=== PATIENT | female | born 1950 | race Caucasian/White ===

== ENCOUNTER 2017-10-12 10:50 | Inpatient (IN) | payer OTHER ==
[2017-10-12] MEDS ORDERED: ceFAZolin 2 GM/DEXTROSE 100 ML IV ONE (11:12)
[2017-10-12] MEDS ORDERED: ACETAMINOPHEN 500 MG TAB PO ONE (11:12)
[2017-10-12] MEDS ORDERED: CEFAZOLIN 2 GM/DEXTROSE/100 ML BAG IV ONE (11:18)
[2017-10-12] MEDS ORDERED: ACETAMINOPHEN 500 MG TAB ONE (11:18)
[2017-10-12] MEDS ORDERED: LIDOCAINE 1% 2 ML INJ ID PRN (11:41)
[2017-10-12] MEDS ORDERED: LR 1,000 ML IV ONE (11:41)
[2017-10-12] MEDS ORDERED: CHLORHEXIDINE GLUC HIBICLENS 118 ML BTL TP ONE (11:57)
[2017-10-12] MEDS ORDERED: BACITRACIN 50,000 UNITS/10 ML SYR IRR ONE (11:58)
[2017-10-12] MEDS ORDERED: BUPIVACAINE 0.25% 30 ML SDV ONE (11:58)
[2017-10-12] MEDS ORDERED: EPINEPHrine 1 MG/ML INJ ONE (11:58)
[2017-10-12] MEDS ORDERED: THROMBIN (BOVINE) 20,000 UNIT VIAL TP ONE (11:59)
--- NOTE | 2017-10-12 12:44 | PDANEPAE ---
ANE History of Present Illness l4-s1 tlif ANE Past Medical History - Cardiovascular History Hx Hypertension: Yes Hx Arrhythmias: No Hx Chest Pain: No Hx Coronary Artery / Peripheral Vascular Disease: No Hx CHF / Valvular Disease: No Hx Palpitations: Yes Cardiovascular History Comment: OCCAS FLUTTERS - Pulmonary History Hx COPD: Yes Hx Asthma/Reactive Airway Disease: No Hx Recent Upper Respiratory Infection: No Hx Oxygen in Use at Home: No Hx Sleep Apnea: No Sleep Apnea Screening Result - Last Documented: Negative Pulmonary History Comment: MILD COPD - Neurologic History Hx Cerebrovascular Accident: No Hx Seizures: Yes Hx Dementia: No Neurologic History Comment: FEVER SEIZURE - Endocrine History Hx Diabetes: Yes Hypothyroid: No Hyperthyroid: No Endocrine History Comment: DM II. A1C 5.02 AUGUST 2017 - Renal History Hx Renal Disorders: No Renal History Comment: WEAK BLADDER W/URGENCY - Liver History Hx Hepatic Disorders: No - Neurological & Psychiatric Hx Hx Neurological and Psychiatric Disorders: No - Cancer History Hx Cancer: No - Congenital Disorder History Hx Congenital Disorders: No - GI History Hx Gastrointestinal Disorders: Yes Gastrointestinal History Comment: GERD. ESOPHAGEAL DILATIONS - Other Health History Other Health History: MILD PSORIASIS - Chronic Pain History Chronic Pain: Yes (LOW BACK PAIN DOWN LEGS) - Surgical History Prior Surgeries: LUMBAR SURGERIES X2 2017. R FOOT SCAR SURGERY. L CEA 2000. ORAL SURGERY. T&A. ESOPHAGEAL DILATIONS. EPIDURAL INJS ANE Review of Systems Review of systems is: negative Review of Systems: - Exercise capacity Exercise capacity: >=4 METS METS (RN): 4 METS ANE Patient History - Allergies Allergies/Adverse Reactions: duloxetine [From Cymbalta] Allergy (Verified 10/12/17 12:02) dizziness gabapentin [From Gabarone] Allergy (Verified 10/12/17 12:02) "bad mood/leg swelling" Penicillins Allergy (Verified 10/12/17 12:02) Rash - Home Medications Home Medications: Ascorbic Acid [Vitamin C 500 mg (*)] 500 mg PO DAILY 09/18/17 [Last Taken Unknown] Aspirin [Aspirin 81mg (*)] 81 mg PO DAILY18 09/18/17 [Last Taken Unknown] C/E/Zn/Cu/OM3/DHA/EPA/LUT/ZEAX [Preservision Areds 2 Softgel] 1 each PO BID [Last Taken Unknown] Herbals/Supplements -Info Only 1 ea PO DAILY 09/18/17 [Last Taken Unknown] Lidocaine [Lidoderm] 0.5 - 1 each TP DAILY 09/18/17 [Last Taken Unknown] Lisinopril [Zestril 5 mg (*)] 5 mg PO DAILY 09/18/17 [Last Taken Unknown] Methocarbamol [Robaxin 750 mg (*)] 750 mg PO Q4HRS 09/18/17 [Last Taken 10/12/17 ] Metoprolol Tartrate [Lopressor 25 mg (*)] 12.5 mg PO BID 09/18/17 [Last Taken ] Multivitamins [Multivitamin (*)] 1 each PO BID 09/18/17 [Last Taken Unknown] Omeprazole 20 mg PO DAILY 09/18/17 [Last Taken 10/12/17] Propylene Glycol [Systane Balance] 1 drop EACHEYE DAILY PRN 09/18/17 [Last Taken Unknown] Simvastatin [Zocor] 10 mg PO HS 09/18/17 [Last Taken Unknown] Vitamin B Complex [Vitamin B Complex (OTC)] 1 each PO DAILY 09/18/17 [Last Taken Unknown] fentaNYL [Duragesic 12 MCG Patch (*)] 12 mcg TD Q2D 09/18/17 [Last Taken Unknown ] metFORMIN HCL [Glucophage 500 mg (*)] 500 mg PO DAILY 09/18/17 [Last Taken Unknown] oxyCODONE/APAP 5/325 [Percocet 5/325 (*)] 1 tab PO Q4-6PRN PRN 09/18/17 [Last Taken Unknown] Triamcinolone 0.1% Cream 09/25/17 [Last Taken Unknown] Triamcinolone 0.1% [Triamcinolone 0.1% Cream (*)] 1 rose TP BID 10/12/17 [Last Taken Unknown] - NPO status NPO Status: no food or drink >8 hours NPO Since - Liquids (Date): 10/12/17 NPO Since - Liquids (Time): 00:00 NPO Since - Solids (Date): 10/12/17 NPO Since - Solids (Time): 00:00 - Anes Hx Anes Hx: no prior problems, awareness under anesthesia Hx Anesthesia Complications (with details): PROBABLE SEDATION - Smoking Hx Smoking Status: Former smoker - Alcohol Use Alcohol Use: Occasionally - Family Anes Hx Family Hx Anesthesia Complications: MOTHER EXTREME NAUSEA ANE Labs/Vital Signs - Vital Signs Vital Signs: reviewed preoperatively; see RN documention for details Blood Pressure: 160/80 Heart Rate: 81 Respiratory Rate: 18 O2 Sat (%): 95 Height: 166.37 cm Weight: 61.235 kg ANE Physical Exam - Airway Neck exam: FROM Mallampati Score: Class 2 Mouth exam: dentures - Pulmonary Pulmonary: no respiratory distress - Cardiovascular Cardiovascular: regular rate and rhythym - ASA Status ASA Status: II ANE Anesthesia Plan Anesthesia Plan: general endotracheal anesthesia
[2017-10-12] MEDS ORDERED: MIDAZOLAM 2 MG/2 ML VIAL ONE (12:47)
[2017-10-12] MEDS ORDERED: MIDAZOLAM 2 MG/2 ML VIAL IVP ONE (12:49)
--- NOTE | 2017-10-12 13:00 | PDHPUP ---
History & Physical Update H&P update statement: This history and physical update is based on an assessment of the patient which was completed after admission or registration (within 24 hours), but prior to the surgery/procedure. H&P update: H&P reviewed & patient examined, no change in patient's condition since H&P completed
[2017-10-12] MEDS ORDERED: fentaNYL 100 MCG/2 ML INJ ONE ×2 (13:03→17:28)
[2017-10-12] MEDS ORDERED: LIDOCAINE 2% 5 ML SDV ONE (13:03)
[2017-10-12] MEDS ORDERED: REMIFENTANIL HCL 2 MG VIAL ONE (13:03)
[2017-10-12] MEDS ORDERED: ROCURONIUM 50 MG/5 ML VIAL ONE (13:03)
[2017-10-12] MEDS ORDERED: PROPOFOL 200 MG/20 ML VIAL ONE (13:04)
[2017-10-12] MEDS ORDERED: PROPOFOL/EMULSION 500 MG/50 ML BOTTLE IV ONE ×2 (13:04→16:06)
[2017-10-12] MEDS ORDERED: ONDANSETRON DISINTEGRATING 4 MG TAB PO PRN (13:46)
[2017-10-12] MEDS ORDERED: diphenhydrAMINE 25 MG CAP PO PRN (13:46)
[2017-10-12] MEDS ORDERED: NALOXONE HCL 0.4 MG/ML INJ IVP PRN ×2 (13:46→17:29)
[2017-10-12] MEDS ORDERED: METHOCARBAMOL 750 MG TAB PO PRN (13:46)
[2017-10-12] MEDS ORDERED: MAGNESIUM HYDROXIDE 30 ML UDCUP PO PRN (13:46)
[2017-10-12] MEDS ORDERED: morphINE PCA 30 MG/30 ML PCA IV PRN (13:46)
[2017-10-12] MEDS ORDERED: BISACODYL 10 MG SUPP PR PRN (13:46)
[2017-10-12] MEDS ORDERED: LACTULOSE 20 GM/30 ML UDCUP PO PRN (13:46)
[2017-10-12] MEDS ORDERED: ONDANSETRON 4 MG/2 ML VIAL IVP PRN ×2 (13:46→17:29)
[2017-10-12] MEDS ORDERED: POLYETHYLENE GLYCOL 3350 17 GM PKT PO PRN (13:46)
[2017-10-12] MEDS ORDERED: Propylene Glycol [Systane Balance] 1 DROP EACHEYE PRN (13:50)
[2017-10-12] MEDS ORDERED: NS 1,000 ML IV SCH (14:00)
[2017-10-12] MEDS ORDERED: ONDANSETRON 4 MG/2 ML VIAL ONE (14:08)
[2017-10-12] MEDS ORDERED: DEXAMETHASONE 4 MG/ML VIAL ONE ×2 (14:08)
[2017-10-12] MEDS ORDERED: PHENYLEPHRINE 10 MG/ML SDV ONE (14:47)
--- NOTE | 2017-10-12 15:12 | PDMN ---
Medical Necessity Medical necessity: [facility] IP only surgery; cpt 00514 & 25982 L4/S1 TLIF
[2017-10-12] MEDS ORDERED: HYDROmorphONE/DILAUDID 2 MG/ML INJ ONE (16:41)
[2017-10-12] MEDS ORDERED: ceFAZolin 1 GM VIAL ONE ×2 (16:41→16:42)
--- NOTE | 2017-10-12 17:25 | POSTOPPROG ---
Post Op Note Date of Operation: 10/12/17 Surgeon: Gracie Crawford Cardiovascular Surgical Tech: Luisa Mason NP Anesthesiologist: Abhijeet Anesthesia: GET(General Endotracheal) Pre-op Diagnosis: Lumbar Stenosis Procedure: L4-5 clamp removal, L4-5, L5-S1 TLIF Inf/Abcess present in the surg proc area at time of surgery?: No Depth: Deep Incisional (Fascial) EBL: 100-500 Total fluids administered: see anesthesia Complications: none Drains: Julito Beckham Date of Surgery: 10/12/17 Post Op Day: 0 Assessment/Plan: Assessment: 67 yr old F s/p L4-5 clamp removal, L4-5, L5-S1 TLIF Plan: -PT/OT -Wear brace when out of bed -Pain management, TAKER DOWN ordered if needed -Post op xrays in am -Call neurosurgery with questions/concerns Subjective: Waking up in PACU Objective: Waking up in PACU No facial droop OLIVER x4 5/5 BLE Dressing CDI Appropriate Neuro Check Frequency Ordered: Yes
[2017-10-12] MEDS ORDERED: DIAZEPAM 5 MG/ML 1 ML SYR IVP PRN (17:29)
[2017-10-12] MEDS ORDERED: MEPERIDINE 25 MG/0.5 ML AMP IVP PRN (17:29)
[2017-10-12] MEDS ORDERED: ACETAMINOPHEN 500 MG TAB PO PRN (17:29)
[2017-10-12] MEDS ORDERED: oxyCODONE IR 5 MG TAB PO PRN (17:29)
[2017-10-12] MEDS ORDERED: PROMETHAZINE HCL 25 MG/ML INJ IVP PRN (17:29)
[2017-10-12] MEDS ORDERED: ALBUTEROL 3 ML DEYVIAL IH PRN (17:29)
[2017-10-12] MEDS ORDERED: fentaNYL 100 MCG/2 ML INJ IVP PRN (17:29)
--- NOTE | 2017-10-12 17:33 | POSTANESTH ---
Post Anesthetic Evaluation Cardiovascular Status: Normal, Stable Respiratory Status: Normal, Stable Level of Consciousness/Mental Status: Can Participate in Eval Pain Control: Adequate, Prn Tx Ordered Nausea/Vomiting Control: Adequate, Prn Tx Ordered Complications Possibly Related to Anesthesia: None Noted
[2017-10-12] MEDS ORDERED: DIAZEPAM 5 MG/ML 1 ML SYR ONE (17:44)
[2017-10-12] MEDS ORDERED: HYDROmorphONE/DILAUDID 1 MG/ML INJ ONE (18:08)
[2017-10-12] MEDS: HYDROmorphONE/DILAUDID 1 MG/ML INJ IVP PRN ×2 (18:10→18:22)
[2017-10-12] MEDS: oxyCODONE IR 5 MG TAB PO PRN ×2 (18:49→22:24)
[2017-10-12] MEDS: ceFAZolin 2 GM/DEXTROSE 100 ML IV SCH (21:01)
[2017-10-12] MEDS: ACETAMINOPHEN 500 MG TAB PO SCH (21:01)
[2017-10-12] MEDS: FAMOTIDINE 20 MG TAB PO SCH (21:02)
[2017-10-12] MEDS: METOPROLOL TARTRATE 25 MG TAB PO SCH (21:03)
[2017-10-12] MEDS: PRAVASTATIN SODIUM 20 MG TAB PO SCH (21:04)
[2017-10-12] MEDS: SENNOSIDES/DOCUSATE SODIUM TAB PO SCH (21:05)
[2017-10-12] MEDS: LIDOCAINE 4%/MENTHOL 1% PATCH TD SCH (22:22)
[2017-10-12] MEDS: METHOCARBAMOL 750 MG TAB PO PRN (22:24)
--- NOTE | 2017-10-12 22:45 | GOP ---
[f rep st] OPERATIVE REPORT DATE OF OPERATION: 10/12/2017 SURGEON: Delbert Crawford MD NEUROSURGEON: Delbert Crawford MD. MULTIPLE PRESSURE RIVETER OPERATOR: Luisa Mason, Nurse Practitioner. PREOPERATIVE DIAGNOSIS: Failed back syndrome, lumbar degenerative disk disease, chronic pain syndrom e, chronic lumbosacral radiculopathy, degenerative tilt (scoliosis) L4 on L5 and L5 on S1. POSTOPERATIVE DIAGNOSIS: Failed back syndrome, lumbar degenerative disk disease, chronic pain syndro me, chronic lumbosacral radiculopathy, degenerative tilt (scoliosis) L4 on L5 and L5 on S1. PROCEDURE PERFORMED: Removal of posterior instrumentation across a single interspace at L4-5 (83956); posterolateral and i ntervertebral arthrodesis with decompressions, L4-5, L5-S1 (37093 and 02484); placement of biomechani leslie intervertebral device L4-5 and L5-S1 (00680 x 2); posterior segmental instrumentation L4, L5, S1 (81219); spinal stereotactic; same incision bone graft harvest; microscope. FINDINGS: ESTIMATED BLOOD LOSS: 200 cc. INDICATIONS: The patient is a 67-year-old with a prior history of an L4-5 decompression and L5-S1 de compression on the right-hand side for right-sided lumbosacral radiculopathy. She also had an inters pinous process fusion devices, a clamp of unknown origin placed at [facility], and she did not ach ieve bony union with this fusion device. She had chronic pain syndrome, terrible radiating pain down the right leg and had recently nearly fallen and wrenched her back and this had exacerbated her pain . She had a degenerative tilt of L4 on L5 and right-sided foraminal stenosis at those levels, and th is convexity of her scoliosis was coincident with the side of her pain, and I felt that she had nerve compression both in the lateral recess at L4-5 but also within the foramen. There was also a large amount of scarring adjacent to the L5 pedicle following the L5 root into its neural foramen, and I th ought that surgery gave her at least some chance of relief. 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 I exp lained to her the nature of the procedure including the chance that it may fail to alleviate her pain , but it seemed reasonable to attempt this, as she was in excruciating pain and really did not know h ow to go on any longer with this terrible pain. She was even teary eyed on the morning of surgery be cause she was in such terrible pain. She knew spine surgery was not perfect, and there was a chance that she may simply have chronic pain syndrome and that this would fail. She knew there was risk of pseudoarthrosis, adjacent segment disease, nerve injury, spinal fluid leak, and she did want to proce ed despite these risks. She is on large doses of narcotics, and I told her that it would likely be q uite some time before we were able to wean her from all of these medications. She was a diabetic and this also increased risk of nonunion. DESCRIPTION OF PROCEDURE: Patient was taken to the operating room, placed in supine position. Gener al anesthesia was begun. She was flipped prone on the Julito table. Care was taken to pad all poin ts of contact. She had about a 4.5 cm incision above the L4-5 interspace. She was sterilely prepped and draped. We opened the prior incision, extended it caudally for a distance of about 3 cm for a t otal distance of about 7.5 cm. The subcutaneous tissue was dissected using Bovie cautery down to the fascia and a subperiosteal dissection was made down the L4-5 lamina. There was a clamp at the L4-5 space. It was secured and properly placed. I saw no evidence of complication from the clamp placeme nt. It was still firmly securing the bone. There was no evidence, however, of bony union. We did n ot have a square screwdriver for removal of the clamp, but it was very easily removed. We simply too k a carbide bit, and cut the crossbar in the midline portion of the clamp itself and it quickly relea sed and pulled off the spinous process. We were later able to harvest underlying remaining spinous p rocess for autologous grafting purposes. We extended our incision. We needed a good bony purchase p oint for our reference frame and we had to make the incision longer extending it rostrally just a bit for a total distance of about 9 cm. We attached the Stealth reference frame to the L3 spinous proce ss, performed an O-arm spin, and using frameless Stealth stereotaxy, we placed pedicle screws bilater ally at L4, L5, and S1. They were all in excellent position. They all stimulated at acceptable leve ls. The S1 screws were bicortical. We took a 70 mm rods, placed them down between these screws and distracted. We began initially by distracting just a little bit on the right-hand side, but it was h ighly mobile. The spine was extremely easy to manipulate without much pressure, and we totally reduc ed the degenerative scoliotic tilt on the right-hand side. We final tightened all the cap screws acc ording to company specification and then harvested the L4 and L5 spinous process, and the S1 spinous process for autologous grafting purposes. We then drilled off all the soft tissue from the bone and decorticated the left-sided facets at L4-5 and 5-1. These were intact and while there was a left-deb ed L4-5 laminotomy, there was still a lot of lamina left on the left-hand side. We decorticated all this for a posterolateral fusion surface on the right-hand side where she had the severe pain. We th en completely removed the facet joint complexes on the right at L4-5 and 51 and it was difficult julio use there was a lot of scar tissue in the lateral recess. There was evidence of compression both at L4-5 and L5-S1, and we removed this tissue on top of the L5 root as well as the tissue sitting on top of the S1 root. Got great decompressions. We identified the L5 root at the L4-5 level and followed it into its neural foramen. We had identified the exiting L4 nerve root at the L4-5 foramen and julio use of the scar tissue, while we had good visualization of the nerves, they were not highly mobile, a nd I therefore elected to use small crescent intervertebral devices at L4-5 and 5-1 as opposed to our elevate cages which we typically use. Again at L5-S1, where we swept the S1 nerve root medially, wo rked in the axilla of the L5 root and removed the disk and the cartilaginous endplates. We roughened the subchondral bone to create arthrodesis. We then did likewise at L4-5. We removed the disk and the cartilaginous endplates. We roughened the subchondral bone to create arthrodesis. We packed BMP and bone autograft into the disk space. We used 2 mg in the disk spaces, 1 in each, and placed bony autograft and followed this with a 7 mm crescent intervertebral device. It was nicely placed. We t hen placed bone posterolaterally bilaterally at L4-5 and 5-1 after decorticating all of the remaining bone to create arthrodesis. We used a total of 4 mg of BMP for the surgery. A subfascial drain was placed. We then closed the fascia with interrupted Vicryl sutures and PDS was placed in the skin. Steri-Strips were placed, and the dressing was secured. The patient was then flipped back on the [facility] bed where she was reversed from anesthesia, extubated, and transferred to recovery room in stab le condition. There were no complications. COMPLICATIONS: None. /[id number]/MODL
[2017-10-12] MEDS: TRIAMCINOLONE 0.1% 15 GM CRTUBE TP SCH (23:27)
[2017-10-13 20:55] LABS: PLATELET COUNT 214 10^3/uL (150-400)
[2017-10-13] MEDS: LIDOCAINE 4%/MENTHOL 1% PATCH TD SCH (21:16)
[2017-10-13] MEDS: ACETAMINOPHEN 500 MG TAB PO SCH (22:11)
--- NOTE | 2017-10-13 22:30 | ASMTCMCOM ---
CM Note CM Note Notes: Pt s/p L4-5, L5-S1 TLIF and L4-5 clamp removal. PT/OT evals pending. CM to follow for d/c planning. Date Signed: 10/13/2017 03:08 PM Electronically Signed By:ANGEL Disla
[2017-10-14] MEDS: oxyCODONE IR 5 MG TAB PO PRN ×3 (02:30→10:49)
[2017-10-14] MEDS: METHOCARBAMOL 750 MG TAB PO PRN ×3 (02:30→10:47)
[2017-10-14] MEDS: FAMOTIDINE 20 MG TAB PO SCH ×3 (05:14→08:27)
[2017-10-14] MEDS: METOPROLOL TARTRATE 25 MG TAB PO SCH ×3 (05:17→08:26)
[2017-10-14] MEDS: PRAVASTATIN SODIUM 20 MG TAB PO SCH (05:17)
[2017-10-14] MEDS: SENNOSIDES/DOCUSATE SODIUM TAB PO SCH ×3 (05:18→08:25)
[2017-10-14] MEDS: TRIAMCINOLONE 0.1% 15 GM CRTUBE TP SCH ×3 (05:18→11:00)
[2017-10-14] MEDS: ACETAMINOPHEN 500 MG TAB PO SCH ×2 (05:30→06:12)
[2017-10-14] MEDS: metFORMIN HCL 500 MG TAB PO SCH ×2 (05:31→08:25)
[2017-10-14] MEDS: LISINOPRIL 5 MG TAB PO SCH ×2 (05:31→08:27)
[2017-10-14] MEDS: ceFAZolin 2 GM/DEXTROSE 100 ML IV SCH (05:32)
[2017-10-14] MEDS: PANTOPRAZOLE SODIUM 40 MG TAB PO SCH ×2 (05:32→08:28)
[2017-10-14] MEDS: PATCH REMOVAL 1 EA PATCH TD SCH ×2 (05:32→10:59)
--- NOTE | 2017-10-14 07:31 | NEUSURGPN ---
Date of Surgery: 10/12/17 Post Op Day: 2 Assessment/Plan: Assessment: 67 yr old F s/p L4-5 clamp removal, L4-5, L5-S1 TLIF POD#2 Plan: -PT/OT -Wear brace when out of bed -Pain management, currently controlled with oral medications -Post op xrays stable hardware placement -OK to discharge home, patient will be staying local at a hotel for 2 weeks ( patient lives in [place]) -Call neurosurgery with questions/concerns Patient seen by Dr Crawford as well Subjective: Improved pre op leg pain, sitting in chair comfortably Objective: AxO x3 Sitting in chair 5/5 BLE Sensation intact to light touch BLE Dressing/incision CDI Neuro Check Frequency: per routine Urinary Catheter in Place: No - Physician Discussed Patient with : Ty Patient Seen by : Ty Neurosurgery Physical Exam - Vitals, I&O, Labs I and O 10/13/17 10/14/17 10/15/17 05:59 05:59 05:59 Intake Total 1600 500 Output Total 300 600 Balance 1300 -100 Weight 61.235 kg Intake: Oral (ml) 500 IV Intake (ml) 1600 Output: Urine (ml) 100 600 Catheter 100 Toilet 600 Estimated Blood Loss (ml) 200 Other: Number of Voids Toilet 3 Vital Signs Temp Pulse Resp BP Pulse Ox 36.8 C 84 16 99/45 L 95 10/14/17 04:00 10/14/17 04:00 10/14/17 04:00 10/14/17 05:17 10/14/17 04:00 Laboratory Results 10/13/17 04:42 10/13/17 04:42 ICD10 Worksheet Patient Problems: Problems Problem Status Onset Fusion of lumbar spine Acute - ICD10 Problem Qualifiers (1) Fusion of lumbar spine
[2017-10-14 08:10] VITALS: BP 105/63
[2017-10-14] MEDS ORDERED: fentaNYL 12 MCG PATCH TD SCH (09:00)
--- NOTE | 2017-10-14 10:51 | PDIAF ---
- Diagnosis Diagnosis: S/P L4-5, L5-S1 TLIF Code Status: Full Code - Medication Management Discharge Medications: Medications to Continue on Transfer Ascorbic Acid [Vitamin C 500 mg (*)] 500 mg PO DAILY 09/18/17 [Last Taken Unknown] C/E/Zn/Cu/OM3/DHA/EPA/LUT/ZEAX [Preservision Areds 2 Softgel] 1 each PO BID [Last Taken Unknown] Herbals/Supplements -Info Only 1 ea PO DAILY 09/18/17 [Last Taken Unknown] Lidocaine [Lidoderm] 0.5 - 1 each TP DAILY 09/18/17 [Last Taken Unknown] Lisinopril [Zestril 5 mg (*)] 5 mg PO DAILY 09/18/17 [Last Taken Unknown] Metoprolol Tartrate [Lopressor 25 mg (*)] 12.5 mg PO BID 09/18/17 [Last Taken ] Multivitamins [Multivitamin (*)] 1 each PO BID 09/18/17 [Last Taken Unknown] Omeprazole 20 mg PO DAILY 09/18/17 [Last Taken 10/12/17] Propylene Glycol [Systane Balance] 1 drop EACHEYE DAILY PRN 09/18/17 [Last Taken Unknown] Simvastatin [Zocor] 10 mg PO HS 09/18/17 [Last Taken Unknown] Vitamin B Complex [Vitamin B Complex (OTC)] 1 each PO DAILY 09/18/17 [Last Taken Unknown] fentaNYL [Duragesic 12 MCG Patch (*)] 12 mcg TD Q2D 09/18/17 [Last Taken Unknown ] metFORMIN HCL [Glucophage 500 mg (*)] 500 mg PO DAILY 09/18/17 [Last Taken Unknown] Triamcinolone 0.1% [Triamcinolone 0.1% Cream (*)] 1 rose TP BID #0 09/25/17 [ Last Taken Unknown] Triamcinolone 0.1% [Triamcinolone 0.1% Cream (*)] 1 rose TP BID 10/12/17 [Last Taken Unknown] Aspirin [Aspirin 81mg (*)] 81 mg PO DAILY18 30 Days #0 10/14/17 [Last Taken Unknown] Methocarbamol [Robaxin 750 mg (*)] 750 mg PO Q4 PRN #90 tab 10/14/17 [Last Taken Unknown] oxyCODONE IR [Oxycodone Ir (*)] 5 - 10 mg PO Q4HRS PRN #60 tab 10/14/17 [Last Taken Unknown] Discharge Medications: Refer to the Discharge Home Medication list for PRN reason. PICC Care - Routine: N/A - Orders Services needed: Physical Therapy, Occupational Therapy Diet Recommendation: no restrictions on diet Diet Texture: Regular Texture Diet Wound Care Instructions: Ok to remove dressing tomorrow 10/15/17. Leave steri strips in place Activity/Weight Bearing Restrictions: No bending or twisting. Do not lift greater than 10 pounds. Wear brace when out of bed. No brace needed for shower Additional Instructions: No bending or twisting Do not lift greater than 10 pounds Wear brace when out of bed Ok to remove dressing 10/15/17-leave steri strips in place Ok to shower tomorrow (10/15/17) Do not submerge incision in bath tub or pool for 2-3 weeks - Follow Up Care Current Providers and Referrals: Doctor Robyn,On Staff, [Primary Care Provider] - Gracie Crawford MD [Medical Doctor] - follow up in 2 weeks
--- NOTE | 2017-10-14 11:47 | ASMTLACE ---
LACE Length of stay for Answers: 2 days current admission Acuity / Level of Answers: Yes Care: Did the patient have an inpatient admission? Comorbidities - select Answers: Chronic pulmonary disease all that apply Diabetes (uncontrolled or controlled) Opioid dependence / Chronic pain Other Notes: HTN; GERD # of Emergency department Answers: 0 visits in the last 6 months Score: 13 Date Signed: 10/14/2017 11:46 AM Electronically Signed By:ANGEL Disla
--- NOTE | 2017-10-14 14:57 | NEUSURGPN ---
[facility] Patient Name: ORLY SILVA Rpt#: [id number] Unit Number: [id number] Attending/ER Physician: Gracie CRAWFORD Patient Type: ADM IN Adm Date/Source: 10/12/17 PHY Discharge Date: Primary Carrier: MEDICARE OUTPATIENT Neurosurgical Progress Note Date of Surgery: 10/12/17 Post Op Day: 1 Assessment/Plan: Assessment: 67 yr old F s/p L4-5 clamp removal, L4-5, L5-S1 TLIF POD#1 Plan: -PT/OT -Wear brace when out of bed -Pain management, pain presently controlled with current regimen -Post op xrays pending this am -Call neurosurgery with questions/concerns Patient seen by Dr Crawford as well Subjective: Pre-op Leg pain improved Objective: AxO x3 PERRLA 5/5 BLE Sensation intact to light touch BLE Dressing/incision CDI Neuro Check Frequency: per routine Urinary Catheter in Place: No - Physician Discussed Patient with .: Ty Patient Seen by : Ty Neurosurgery Physical Exam - Vitals, I O, Labs I and O 10/12/17 10/13/17 10/14/17 05:59 05:59 05:59 Intake Total 1600 Output Total 300 Balance 1300 Weight 61.235 kg Intake: IV Intake (ml) 1600 Output: Urine (ml) 100 Catheter 100 Estimated Blood Loss (ml) 200 Vital Signs Temp Pulse Resp BP Pulse Ox 36.3 C 94 18 111/66 93 10/12/17 23:25 10/12/17 23:25 10/12/17 23:25 10/12/17 23:25 10/12/17 23:25 Laboratory Results 10/13/17 04:42 10/13/17 04:42 ICD10 Worksheet Patient Problems: Problems Problem Status Onset Fusion of lumbar spine Acute - ICD10 Problem Qualifiers (1) Fusion of lumbar spine *This report may have been compiled using a voice recognition system, and might contain typographical errors and blanks.* Luisa Mason NP 10/13/17806 <Electronically signed by Luisa Mason NP> 2 T: MARNI 10/13/17802 CC:
--- NOTE | 2017-10-14 15:23 | ASMTCMCOM ---
CM Note CM Note Notes: Today PT/OT rec HHC, pt agreeable. Pt will d/c to [facility] [address] [place] [address] [facility] 10/[address] [place] [id number]. Team [facility] can staff pt at both locations. Orders sent to [facility] in [employer] for PT/OT. Date Signed: 10/14/2017 03:23 PM Electronically Signed By:ANGEL Disla
--- NOTE | 2017-10-14 15:24 | ASDISCHSUM ---
Discharge Information Plan Status:Home with Home Health Medically Cleared to Leave: Discharge Date:10/14/2017 12:13 PM CM D/C Disposition:Home Health Service ADT D/C Disposition:[id number] Projected Discharge Date:10/14/2017 11:00 AM Transportation at D/C: Discharge Delay Reason: Follow-Up Date:10/14/2017 11:00 AM Discharge Slot: Final Diagnosis: Placement Information Referral Type:*Home Health Care Services Referral ID:[id number] Provider Name:Melina Castanon Address 1:[address] Phone Number: Address 2: Fax Number: City:[place] Selection Factors: State:[place] Patient Contact Information Contact Name:LUKE Relationship: Address:[address] Work Phone: City:[facility] Phone: [facility] Code:[place] [address] Email: Financial Information Financial Class:Medicare Primary Plan Desc:MEDICARE INPATIENT Primary Plan Number:[id number] Secondary Plan Desc:[employer] Secondary Plan Number:[id number] Assessment Information LACE LACE Length of stay for Answers: 2 days current admission Acuity / Level of Answers: Yes Care: Did the patient have an inpatient admission? Comorbidities - select Answers: Chronic pulmonary disease all that apply Diabetes (uncontrolled or controlled) Opioid dependence / Chronic pain Other Notes: HTN; GERD # of Emergency department Answers: 0 visits in the last 6 months Score: 13 Date Signed: 10/14/2017 11:46 AM Electronically Signed By:ANGEL Disla [facility] CM Progress Note CM Note CM Note Notes: Pt s/p L4-5, L5-S1 TLIF and L4-5 clamp removal. PT/OT evals pending. CM to follow for d/c planning. Date Signed: 10/13/2017 03:08 PM Electronically Signed By:ANGEL Disla [employer] [facility] Progress Note CM Note CM Note Notes: Today PT/OT rec C, pt agreeable. Pt will d/c to [place] [address] [address] [facility] [address] [facility] 10/20 then rental [address] [facility] [address]. Team [facility] can staff pt at both locations. Orders sent to [facility] in [employer] for PT/OT. Date Signed: 10/14/2017 03:23 PM Electronically Signed By:ANGEL Disla Intervention Information
[2017-10-15] MEDS ORDERED: ENOXAPARIN 40 MG/0.4 ML SYR SC SCH (09:00)
== END 2017-10-14 12:13 | disposition home health service (06) | DRG 455 ==
LOC: F3N 10:50
PROVIDERS: ADMIT Neurological Surgery; ATTEND Neurological Surgery
PROC: 0SG0071 Fusion of Lumbar Vertebral Joint with Autologous Tissue Substitute, Posterior Approach, Posterior Column, Open Approach (ICD-10-PCS; principal; 2017-10-12 13:00)
PROC: 0SG30AJ Fusion of Lumbosacral Joint with Interbody Fusion Device, Posterior Approach, Anterior Column, Open Approach (ICD-10-PCS; principal; 2017-10-12 13:00)
PROC: 0SG00AJ Fusion of Lumbar Vertebral Joint with Interbody Fusion Device, Posterior Approach, Anterior Column, Open Approach (ICD-10-PCS; principal; 2017-10-12 13:00)
PROC: 0SG3071 Fusion of Lumbosacral Joint with Autologous Tissue Substitute, Posterior Approach, Posterior Column, Open Approach (ICD-10-PCS; principal; 2017-10-12 13:00)
PROC: 8E0WXBZ Computer Assisted Procedure of Trunk Region (ICD-10-PCS; principal; 2017-10-12 13:00)
PROC: 01NB0ZZ Release Lumbar Nerve, Open Approach (ICD-10-PCS; principal; 2017-10-12 13:00)
PROC: 4A1004G Monitoring of Central Nervous Electrical Activity, Intraoperative, Open Approach (ICD-10-PCS; principal; 2017-10-12 13:00)
PROC: 0SP00AZ Removal of Interbody Fusion Device from Lumbar Vertebral Joint, Open Approach (ICD-10-PCS; principal; 2017-10-12 13:00)
DX: M41.86 Other forms of scoliosis, lumbar region (principal); M51.36 Other intervertebral disc degeneration, lumbar region; G89.4 Chronic pain syndrome; M54.17 Radiculopathy, lumbosacral region; M41.87 Other forms of scoliosis, lumbosacral region; I10 Essential (primary) hypertension; J44.9 Chronic obstructive pulmonary disease, unspecified; E11.9 Type 2 diabetes mellitus without complications; K21.9 Gastro-esophageal reflux disease without esophagitis
CPT/HCPCS: 97116-GP; 97161-GP; 97165-GO; 97530-GP; 97535-GO; C1713; G8978-GP-CI; G8978-GP-CJ; G8979-GP-CI; G8980-GP-CI; G8987-GO-CI; G8988-GO-CI; J0171; J0690; J1100; J1170; J2250; J2270; J2370; J2405; J2704; J3010; J3360

== ENCOUNTER 2017-10-14 23:41 | Inpatient (IN) | payer OTHER ==
--- NOTE | 2017-10-15 00:14 | EDPHY ---
H & P Stated Complaint: BACK S/P BACK FUSION SX ON THURSDAY Time Seen by Provider: 10/15/17 00:13 HPI/ROS: HPI CHIEF COMPLAINT: Back pain status post discharged today. HISTORY OF PRESENT ILLNESS: Patient is 67-year-old female she does recently had lumbar surgery by Dr. Crawford. She was discharged from the hospital today. She was eager to be discharged. She is currently staying in a motel as she resides in [place]. She presents back to the emergency room due to increasing back pain and not able to take care of herself in the motel. She complains of lumbar back pain. 12/11 currently. With any movement she describes pain. She denies any bowel or bladder incontinence. Denies leg weakness. Denies focal numbness or tingling. She denies any chest pain or shortness of breath. She states she has been taking her fentanyl patch, oxycodone. Despite she still having increasing pain. However upon arrival to the emergency room is noted she is tachycardic in the 120s and hypoxic in the 80s. She does not wear oxygen Past Medical History: Failed back syndrome, chronic degenerative disc disease, chronic pain, lumbar radiculopathy, history of diabetes, hypertension Past Surgical History: Recent lumbar surgery October [address] Crawford. Social History: Denies daily use of drugs alcohol tobacco. Family History: Noncontributory ROS REVIEW OF SYSTEMS: A comprehensive 10 point review of systems is otherwise negative aside from elements mentioned in the history of present illness. Exam Constitutional triage nursing summary reviewed, vital signs reviewed, awake/ alert. Vital signs noted to be tachycardic and hypoxic. Eyes normal conjunctivae and sclera, EOMI, PERRLA. HENT normal inspection, atraumatic, moist mucus membranes, no epistaxis, neck supple/ no meningismus, no raccoon eyes. Respiratory clear to auscultation bilaterally, normal breath sounds, no respiratory distress, no wheezing. Cardiovascular rate normal, regular rhythm, no murmur, no edema, distal pulses normal. Gastrointestinal soft, non-tender, no rebound, no guarding, normal bowel sounds, no distension, no pulsatile mass. Genitourinary no CVA tenderness. Musculoskeletal back exam: Dressing in place. With removal of the dressing the midline lumbar incision looks clean, dry and intact. No leg weakness on exam. no midline vertebral tenderness, full range of motion, no calf swelling, no tenderness of extremities, no meningismus, good pulses, neurovascularly intact. Skin pink, warm, & dry, no rash, skin atraumatic. Neurologic awake, alert and oriented x 3, AAOx3, moves all 4 extremities equally, motor intact, sensory intact, CN II-XII intact, normal cerebellar, normal vision, normal speech. Psychiatric normal mood/affect. Heme/Lymph/Immune no lymphadenopathy. Differential Diagnosis: Includes but is not limited to lumbar back pain, acute on chronic back pain, postoperative pain, pulmonary embolism, pneumonia, dehydration, infection, tachycardia, electrolyte disturbance Medical Decision Making: Plan for this patient IV establishment with blood draw , IV fluid bolus, IV Dilaudid for pain control, IV Zofran 4 mg for nausea, basic blood work, D-dimer, EKG, chest x-ray patient need to be readmitted back to the hospital. Re-evaluation: EKG interpretation by me on record in [employer] system. Impression time of EKG 0021, sinus tachycardia rate of 118. There is no signs of acute ischemia. No signs of CT angiogram of the chest shows no evidence of PE. There is extensive emphysema. And a lung nodule needs follow-up. Source: Patient - Personal History Current Tetanus Diphtheria and Acellular Pertussis (TDAP): Yes - Medical/Surgical History Hx Asthma: No Hx Chronic Respiratory Disease: Yes Hx Diabetes: Yes Hx Cardiac Disease: Yes Hx Renal Disease: No Hx Cirrhosis: No Hx Alcoholism: No Hx HIV/AIDS: No Hx Splenectomy or Spleen Trauma: No Other PMH: HTN, diabetic 2, GERD, Atrial flutter, back fusion, COPD, constipation, BACK FUSION - Social History Smoking Status: Former smoker Constitutional: Initial Vital Signs Temperature (C) 37.4 C 10/14/17 23:46 Heart Rate 126 H 10/14/17 23:46 Respiratory Rate 16 10/14/17 23:46 Blood Pressure 120/69 10/14/17 23:46 O2 Sat (%) 83 L 10/14/17 23:46 O2 Delivery Mode Room Air O2 (L/minute) 2 Allergies/Adverse Reactions: duloxetine [From Cymbalta] Allergy (Verified 10/12/17 12:02) dizziness gabapentin [From Gabarone] Allergy (Verified 10/12/17 12:02) "bad mood/leg swelling" Penicillins Allergy (Verified 10/12/17 12:02) Rash Home Medications: Medication Instructions Recorded Ascorbic Acid [Vitamin C 500 mg 500 mg PO DAILY 09/18/17 (*)] C/E/Zn/Cu/OM3/DHA/EPA/LUT/ZEAX 1 each PO BID 09/18/17 [Preservision Areds 2 Softgel] Herbals/Supplements -Info Only 1 ea PO DAILY 09/18/17 Lidocaine [Lidoderm] 0.5 - 1 each TP DAILY 09/18/17 Lisinopril [Zestril 5 mg (*)] 5 mg PO DAILY 09/18/17 Metoprolol Tartrate [Lopressor 25 12.5 mg PO BID 09/18/17 mg (*)] Multivitamins [Multivitamin (*)] 1 each PO BID 09/18/17 Omeprazole 20 mg PO DAILY 09/18/17 Propylene Glycol [Systane Balance] 1 drop EACHEYE DAILY PRN 09/18/17 Simvastatin [Zocor] 10 mg PO HS 09/18/17 Vitamin B Complex [Vitamin B 1 each PO DAILY 09/18/17 Complex (OTC)] metFORMIN HCL [Glucophage 500 mg 500 mg PO DAILY 09/18/17 (*)] Triamcinolone 0.1% [Triamcinolone 1 rose TP BID #0 09/25/17 0.1% Cream (*)] Aspirin [Aspirin 81mg (*)] 81 mg PO DAILY18 30 Days #0 10/14/17 Methocarbamol [Robaxin 750 mg (*)] 750 mg PO Q4 PRN #90 tab 10/14/17 fentaNYL [Duragesic 12 MCG Patch 25 mcg TD Q2D #0 10/14/17 (*)] oxyCODONE IR [Oxycodone Ir (*)] 5 - 10 mg PO Q4HRS PRN #60 tab 10/14/17 Medical Decision Making - Data Points Laboratory Results: Laboratory Results 10/15/17 01:15 10/15/17 01:15 Medications Given: Acetaminophen (Tylenol) 650 mg PO Q4HRS PRN PRN Reason: Pain, Mild/Fever, Can Take PO Stop: 04/13/18 05:19 Last Admin: 10/16/17 13:05 Dose: 650 mg Hydrocodone Bitart/Acetaminophen ([place] 5/325) 1 - 2 tab PO Q4HRS PRN PRN Reason: Pain, Moderate Able to Take PO Stop: 10/25/17 05:19 Last Admin: 10/16/17 17:42 Dose: 1 tab Ascorbic Acid (Vitamin C) 500 mg PO DAILY QUETA Stop: 04/14/18 08:59 Last Admin: 10/16/17 08:23 Dose: 500 mg Fentanyl (Duragesic) 25 mcg TD Q48H QUETA Stop: 10/26/17 08:59 Last Admin: 10/16/17 10:35 Dose: 25 mcg Hydromorphone HCl (Dilaudid) 0.5 - 1 mg IVP Q4HRS PRN PRN Reason: Pain, Breakthrough Stop: 10/25/17 05:19 Last Admin: 10/15/17 07:37 Dose: 1 mg Lisinopril (Zestril) 5 mg PO DAILY QUETA Stop: 04/14/18 08:59 Last Admin: 10/16/17 08:25 Dose: 5 mg Methocarbamol (Robaxin) 750 mg PO Q4 QUETA Stop: 04/13/18 13:59 Last Admin: 10/16/17 21:20 Dose: 750 mg Metoprolol Tartrate (Lopressor) 12.5 mg PO BID QUETA Stop: 04/13/18 20:59 Last Admin: 10/16/17 21:21 Dose: Not Given Miscellaneous Information (Patch Removal) 1 ea TD DAILY QUETA Stop: 04/14/18 08:59 Last Admin: 10/16/17 05:48 Dose: 1 ea Miscellaneous Medication (Icy Hot Lidocaine/Menthol 4%/1% Patch) 0.5 - 1 patch TD HS QUETA Stop: 04/13/18 22:14 Last Admin: 10/16/17 21:19 Dose: 1 patch Oxycodone HCl (Oxycodone Ir) 5 - 10 mg PO Q3H PRN PRN Reason: Pain, Severe Able to Take PO Stop: 10/25/17 13:50 Last Admin: 10/16/17 21:22 Dose: 10 mg Pantoprazole Sodium (Protonix) 40 mg PO DAILY QUETA Stop: 04/14/18 08:59 Last Admin: 10/16/17 08:25 Dose: 40 mg Polyethylene Glycol (Miralax) 17 gm PO DAILY PRN; Protocol PRN Reason: Constipation, patient prefers Stop: 04/13/18 06:59 Last Admin: 10/16/17 16:18 Dose: 17 gm Pravastatin Sodium (Pravachol) 20 mg PO HS QUETA Stop: 04/13/18 20:59 Last Admin: 10/16/17 21:22 Dose: 20 mg Senna/Docusate Sodium (Senokot-S) 1 - 2 tab PO BID QUETA PRN Reason: Protocol Stop: 04/13/18 08:59 Last Admin: 10/16/17 21:22 Dose: Not Given Triamcinolone (Triamcinolone 0.1%) 1 rose TP BID QUETA Stop: 04/13/18 20:59 Last Admin: 10/16/17 21:23 Dose: 1 rose Vitamin B Complex (Vitamin B Complex) 1 ea PO DAILY QUETA Stop: 04/14/18 08:59 Last Admin: 10/16/17 10:17 Dose: 1 ea Discontinued Medications Fentanyl (Duragesic) 25 mcg TD Q48H QUETA Stop: 10/25/17 13:59 Last Admin: 10/15/17 17:15 Dose: Not Given Hydromorphone HCl (Dilaudid) 0.5 mg IVP EDNOW ONE Stop: 10/15/17 00:27 Last Admin: 10/15/17 01:05 Dose: 0.5 mg Hydromorphone HCl (Dilaudid) 0.5 mg IVP EDNOW ONE Stop: 10/15/17 02:03 Last Admin: 10/15/17 02:21 Dose: 0.5 mg Sodium Chloride (Ns) 1,000 mls @ 0 mls/hr IV ONCE ONE PRN Reason: Wide Open Stop: 10/15/17 00:27 Last Admin: 10/15/17 01:05 Dose: 1,000 mls Methocarbamol (Robaxin) 750 mg PO Q4 QUETA Stop: 04/13/18 13:59 Last Admin: 10/16/17 02:16 Dose: 750 mg Metoprolol Tartrate (Lopressor) 12.5 mg PO ONCE ONE Stop: 10/15/17 16:37 Last Admin: 10/15/17 17:18 Dose: 12.5 mg Ondansetron HCl (Zofran) 4 mg IVP EDNOW ONE Stop: 10/15/17 00:27 Last Admin: 10/15/17 01:05 Dose: 4 mg Point of Care Test Results: Chemistry 10/15/17 01:05 POC Troponin I 0.00 ng/mL ng/mL (0.00-0.08) Departure - Departure Disposition: [facility] Inpatient Acute Clinical Impression: Tachycardia, Hypoxia, Pulmonary nodule Back pain Qualifiers: Back pain location: low back pain Chronicity: acute Back pain laterality: unspecified Sciatica presence: without sciatica Qualified Code(s): M54.5 - Low back pain Condition: Good
--- NOTE | 2017-10-15 00:23 | CPEKG ---
Heart Rate: 118 RR Interval: 508 P-R Interval: 152 QRSD Interval: 74 QT Interval: 304 QTC Interval: 427 P [place]: 52 QRS [place]: -12 T Wave [place]: 38 EKG Severity - OTHERWISE NORMAL ECG - EKG Impression: SINUS TACHYCARDIA Electronically Signed By: Abdiaziz Babcock 15-Oct-2017 07:13:49
[2017-10-15] MEDS ORDERED: ONDANSETRON 4 MG/2 ML VIAL IVP ONE (00:26)
[2017-10-15] MEDS ORDERED: HYDROmorphONE/DILAUDID 2 MG/ML INJ IVP ONE ×2 (00:26→02:02)
[2017-10-15] MEDS ORDERED: NS 1,000 ML IV ONE (00:26)
[2017-10-15] MEDS ORDERED: HYDROmorphONE/DILAUDID 1 MG/ML INJ ONE ×2 (00:38→02:04)
[2017-10-15 01:36] LABS: PLATELET COUNT 205 10^3/uL (150-400)
[2017-10-15 01:38] LABS: INR 1.04 (0.83-1.16); PROTIME(PATIENT) 13.8 SEC (12.0-15.0)
[2017-10-15] MEDS ORDERED: IOPAMIDOL (ISOVUE 370) 100 ML BTL IV ONE (01:44)
[2017-10-15] MEDS ORDERED: HYDROmorphONE/DILAUDID 1 MG/ML INJ IVP PRN (05:20)
[2017-10-15] MEDS ORDERED: ACETAMINOPHEN 325 MG TAB PO PRN (05:20)
[2017-10-15] MEDS ORDERED: ONDANSETRON 4 MG/2 ML VIAL IVP PRN (05:20)
[2017-10-15] MEDS ORDERED: NS 1,000 ML IV SCH (05:30)
[2017-10-15] MEDS ORDERED: ALBUTEROL 3 ML DEYVIAL IH PRN (06:57)
[2017-10-15] MEDS ORDERED: MAGNESIUM HYDROXIDE 30 ML UDCUP PO PRN (07:00)
[2017-10-15] MEDS ORDERED: LACTULOSE 20 GM/30 ML UDCUP PO PRN (07:00)
[2017-10-15] MEDS ORDERED: POLYETHYLENE GLYCOL 3350 17 GM PKT PO PRN (07:00)
[2017-10-15] MEDS ORDERED: BISACODYL 10 MG SUPP PR PRN (07:00)
--- NOTE | 2017-10-15 07:47 | GHP ---
[f rep st] HISTORY AND PHYSICAL DATE OF ADMISSION: 10/15/2017 The [place]. She was recently discharged yesterday under service of Dr. Rick Crawford. SOURCE: Patient able to provide history, appears reliable. Her EMR was reviewed and case discussed with ED provider. CHIEF COMPLAINT: Severe back pain. HISTORY OF PRESENT ILLNESS: This is a very pleasant 67-year-old female with past medical history significant for HTN, DM 2, GERD, atrial flutter, COPD, chronic low back pain related to degenerative disk disease with spinal stenosis , status post a TLIF L4-5, L5-S1. She was discharged on 10/14/2017 to her hotel. Patient is from out of state and is staying locally in a hotel until she is ready to travel back to [place]. The patient states that when she arrived home, she thought she would be okay. However, her back pain and spasms continued to increase over the course of the night. Her pain was so severe that she was needing assistance to stand. However, patient reports she did not realize her strength overall was not sufficient to be able to assist her safely. The patient also reporting increasing lower back pain. She denies any fevers or chills. She denies any worsening numbness or tingling. She does have some chronic numbness, tingling in her great toes. She denies any urinary retention or fecal incontinence. The patient states that she feels like she has been able to eat and drink sufficiently. She denies any increased lower extremity edema and she reports that it is at her baseline. The patient also states that what is new in her pain is right hip pain. REVIEW OF SYSTEMS: Negative for fevers, chills. SKIN: No rashes, sores. ENT: Reports chronic rhinorrhea, sore throat after her surgery is stable. EYES: Patient denies any acute changes in vision or ocular pain. CV: No chest pain or palpitations today, but she did have palpitations yesterday. RESPIRATORY: No shortness of breath or cough. GI: Patient denies any nausea or vomiting. : Overactive bladder without any dysuria or hematuria reported. MUSCULOSKELETAL: See HPI. NEURO: Patient denies any headache, numbness, tingling as noted per HPI. PSYCH: Negative for anxiety, depression. Remainder ROS negative except as noted above. ALLERGIES: 1. Duloxetine. 2. Gabapentin. 3. Penicillin. HOME MEDICATIONS: As per EMR: 1. Oxy IR 5-10 p.o. q.4 hours p.r.n. 2. Metformin 500 mg p.o. daily. 3. Fentanyl 25 mcg transdermally every 48 hours. 4. Vitamin B complex 1 tab p.o. daily. 5. Triamcinolone cream 1 application topically twice daily. 6. Simvastatin 10 mg p.o. at nighttime. 7. Systane balance eyedrops p.r.n. 8. Omeprazole 20 mg p.o. daily. 9. Multivitamin 1 tab p.o. twice daily. 10. Metoprolol 12.5 mg p.o. twice daily. 11. Methocarbamol 750 mg p.o. q.4 hours p.r.n. for spasms and pain. 12. Lisinopril 5 mg p.o. daily. 13. Lidoderm patch 1 patch daily. 14. Herbal supplementations. 15. PreserVision AREDS 1 tab p.o. twice daily. 16. Aspirin 81 mg p.o. daily. 17. Ascorbic acid/vitamin C 500 mg p.o. daily. PAST MEDICAL HISTORY: Significant for HTN, DM 2, GERD, atrial flutter on aspirin only, no anticoagulation, COPD, constipation, chronic low back pain, overactive bladder, degenerative disk disease with spinal stenosis. PAST SURGICAL HISTORY: Significant for back surgery x2, most recently the TLIF L4-5, L5-S1. Left carotid endarterectomy. Bilateral cataract extraction with lens placement. Tonsillectomy, adenoidectomy. FAMILY HISTORY: Grandparents with HTN, CVA. Mother and grandparents with breast cancer. Children: Patient reports overall healthy. She does have 1 daughter with severe degenerative disk disease and disabled. SOCIAL HISTORY: Patient is staying locally in [place] from [place] with her . She is . She quit smoking in 2006 approximately and has 1-2 pack per day history since the age of 18. She denies any illicit drug use. Drinks 1 sip of a alcoholic beverage weekly. CODE STATUS: Full. PHYSICAL EXAM: VITAL SIGNS: Blood pressure upon arrival to the emergency department is 120/69, heart rate is 126, respiratory rate 16, O2 saturation 83% on room air with a temperature 37.4. Vitals currently available, blood pressure 126/73, heart rate is 103, respiratory rate 18, O2 saturation is 92% on 2 L by nasal cannula, temperature 37. GENERAL: No acute distress, pleasant, frail appearing elderly lady is lying quietly in bed. Her is asleep at bedside. HEAD: Normocephalic, atraumatic. EYES: Extraocular muscles are grossly intact. Pupils equal, round, decreased reactivity to light bilaterally , but symmetric. No scleral icterus or conjunctival injection. Lens reflex is appreciated bilaterally. ENT: Mucous membranes appear slightly dry. No oropharyngeal erythema or exudates. Dentures in place. NECK: Supple, trachea midline neck. CV: Regular rate and rhythm. No murmurs, rubs, or gallops appreciated. RESPIRATORY: Decreased air movement in the bibasilar lung godfrey. No wheezes, rales, or rhonchi. Unlabored breathing. ABDOMEN: Slightly obese, soft, nontender to palpation. No rebound, guarding, or masses appreciated. : No suprapubic tenderness to palpation. No Juarez catheter in place. MUSCULOSKELETAL: With some limited movement in her lower back. She is able to move all extremities while lying flat in bed. NEURO: Grossly nonfocal. Sensation is intact. Patient awake, alert, and oriented x3. Cranial nerves 2- 12 are grossly intact without any facial drooping. PSYCH: Slightly anxious, but she is overall very pleasant and cooperative. Thought process, content, and questions are all appropriate. LABORATORY STUDIES: 1. WBC is 10.11, H and H is 11.2/34.1, up from 10.6/31.8 the day previously, MCV of 94.2, platelet count is 205, no bands. PT is 13.9, INR is 1.04, PTT is 35.1. D-dimer is 1.08. Sodium is 142, potassium 4.5, chloride is 104, CO2 is 27, anion gap 11, BUN 13, creatinine 0.6. GFR greater than 60. Glucose is 179 , calcium 9.1. Troponin is negative. 2. UA specific gravity 1.020 with a pH of 5.0, 2+ leuk esterase, 25-50 WBCs, epithelial cells 2+, RBCs 1-3, trace mucus, otherwise negative. 3. EKG reviewed by myself, sinus tachycardia in the one-teens. There is a Q- wave in lead 3. No acute ST depressions or elevations. QTc is 427. 4. CTA of the chest, preliminary radiology read: Negative for PE, emphysema with a small nodule. 5. Chest x-ray image report reviewed. Report is still pending. Shows some hyperexpansion of the lung godfrey. Some hilar prominence. No cardiomegaly. No effusions or consolidations noted. Aortic tortuosity appreciated. Right hemidiaphragm slightly elevated. Again, report is pending. ASSESSMENT AND PLAN: A pleasant 67-year-old female with a history of severe spinal stenosis, status post transforaminal lumbar interbody fusion (TLIF) of L4 -5 and L5-S1 with Dr. Rick Crawford, who presents to the emergency department with complaints of intractable back pain and generalized weakness. 1. Intractable back pain. Patient is complaining mostly of spasm-type pain, severe with limited mobility. She has no focal deficits at this time. Will consult Neurosurgical services to assist with recommendations. PT/OT has been consulted. The patient did receive 2 doses of Dilaudid in addition to her oral Robaxin, which appears to have finally gotten patient comfortable where she can fall asleep. Patient currently not safe to return home with her report of unable to be single assist in her postop recovery. Case Management will be consulted, as well as PT/OT for evaluation of pain management as noted above. The patient reports that she was supposed to have 1st session of home PT sometime this morning. 2. Spinal stenosis postoperative with transforaminal lumbar interbody fusion ( TLIF). Neurosurgery consult as noted above. 3. Hypoxia. Currently saturating well on 2 L nasal cannula. History of chronic obstructive pulmonary disease but no evidence of exacerbation. The patient likely with some breath holding due to severe pain and currently is saturating quite well. Will try to titrate off oxygen and repeat with exertional pulse ox. CHRONIC MEDICAL ISSUES: 1. Benign essential hypertension. Blood pressure is currently acceptable at this time. Intermittently elevated but likely related to patient's acute pain. We will plan to continue to monitor and address her pain. Quite possible to maintain O2 sats. 2. Diabetes type 2. No evidence of anion gap. Resume patient's metformin once med rec is available. ADA diet. 3. Gastroesophageal reflux disease. Continue patient's PPI per formulary. 4. Atrial flutter. The patient's current EKG showing sinus rhythm with downtrending heart rate. Continue with pain management and IV fluids. Consider EKG if patient's heart rate becomes irregular. 5. COPD. Discussed with the patient. She is not home on any home oxygen. She did present slightly hypoxic but she likely was breath-holding slightly secondary to her severe pain. She has no wheezing or abnormal lung field exam findings. Will make albuterol available p.r.n. and titrate oxygen down as tolerated. The patient will likely require a room air challenge sometime before discharge to ensure she does not need supplemental oxygen. 6. History of atrial flutter, currently in sinus tach with downtrending heart rate. Hold off on anticoagulation. Patient reports she is only on oral aspirin. Resume when okay with Neurosurgery. 7. Constipation. Bowel program will be ordered. 8. History of overactive bladder. Stable. 9. Elevated D-dimer with negative CTA for PE. 10. Anemia, likely a component of some chronic disease. Her previous H and H preoperatively was lower than where it is currently. No evidence of active bleeding. Will monitor her closely. 11. Fluids, electrolytes and nutrition. IV fluids for gentle hydration, patient does appear slightly dry. Electrolyte monitoring replacement if needed. ADA diet has been ordered. 12. Prophylaxis: SCDs, holding anticoagulation. Initiate if okay with Neurosurgery and further recommendations. 13. Code status is full. 14. Disposition: Patient admitted to observation status on the medical floor. Pending PT/OT and Neurosurgery evaluations. /[id number]/MODL MTDD
--- NOTE | 2017-10-15 07:55 | NEUSURGPN ---
Date of Surgery: 10/12/17 Post Op Day: 3 Assessment/Plan: Assessment: 67 yr old s/p L4-5, L5-S1 TLIF with Dr Crawford on 10/12/17 Plan: -patient was discharged to hotel yesterday, unable to control pain and presented to the ER for pain management -Neuro intact, patient having right hip pain likely related to surgical positioning -Tachycardic and hypoxic on arrival-PE workup negative -Neuro intact -Patient admitted to Medicine, we are happy to take over-I have a page out to the Hospitalist -Dr Crawford saw patient in ER this am at 0730 Subjective: Right hip pain Objective: AxO x3 PERRLA varghese x4 5/5 BLE Incision CDI Neuro Check Frequency: per routine Urinary Catheter in Place: No - Physician Discussed Patient with : Ty Patient Seen by : Ty Neurosurgery Physical Exam - Vitals, I&O, Labs Vital Signs Temp Pulse Resp BP Pulse Ox 37 C 103 H 18 126/73 H 92 10/15/17 04:00 10/15/17 04:00 10/15/17 04:00 10/15/17 04:00 10/15/17 04:00 ICD10 Worksheet Patient Problems: Problems Problem Status Onset Back pain Acute Hypoxia Acute Pulmonary nodule Acute Tachycardia Acute Fusion of lumbar spine Acute
[2017-10-15] MEDS: HYDROCODONE/APAP 5/325 TAB PO PRN ×2 (11:11→20:26)
--- NOTE | 2017-10-15 11:51 | ASMTCMCOM ---
CM Note CM Note Notes: Patient presents to the ER with increasing pain, tachycardia, and hypoxia. Patient was discharged from inpatient visit here yesterday after having lumbar surgery on 10/12/17. See CM notes (discharge plan) from 10/14/17. Patient is now readmitted and pending bed placement on F3N. Bethanie at [facility] in [place] contacted as patient was to begin services with them today (see CM notes 10/14/17). She is aware of patient's readmission and CM will follow with discharge planning Date Signed: 10/15/2017 11:50 AM Electronically Signed By:Francine Velasquez RN
[2017-10-15] MEDS: SENNOSIDES/DOCUSATE SODIUM TAB PO SCH ×2 (12:37→20:25)
[2017-10-15] MEDS ORDERED: fentaNYL 25 MCG PATCH TD SCH (14:00)
--- NOTE | 2017-10-15 14:09 | GCON ---
[f rep st] CONSULTATION EMERGENCY ROOM CONSULTATION CHIEF COMPLAINT: Pain management. HISTORY OF PRESENT ILLNESS: The patient is a 67-year-old female who underwent an L4-5, L5-S1 lumbar fusion with Dr. Crawford on October 12, 2017. The patient was recovering well, and pain was well controlled with oral medications, and she was discharged home yesterday with home PT and OT. The patient lives at [facility] in [place], and she was staying in a hotel upon discharge yesterday. Last night, the patient called our on-call provider, was having difficulty with increasing pain, not being able to be managed with the medication she was given. She came to the emergency room for an evaluation. The patient described her symptoms as increasing lower back pain with some pain in her right hip area. She denies any bowel or bladder incontinence or any new numbness or tingling in her bilateral lower extremities. The patient denies any weakness in her bilateral lower extremities. REVIEW OF SYSTEMS: Performed, negative aside from those mentioned in the HPI. ALLERGIES: Duloxetine, gabapentin, penicillin. MEDICATIONS PRIOR TO ADMISSION: Oxy IR 5 to 10 mg p.o. q.4 hours p.r.n.; metformin 500 mg p.o. daily; fentanyl 25 mcg patch every 48 hours; simvastatin 10 mg p.o. at nighttime; Systane Balance eyedrops; omeprazole 20 mg p.o. daily; multivitamin 1 tablet p.o. twice daily; metoprolol 12.5 mg twice daily; methocarbamol 750 mg q.4 p.r.n. spasms and pain; lisinopril 5 mg p.o. daily; Lidoderm patch, 1 patch daily; herbal supplements; PreserVision AREDS 1 tablet p.o. twice daily; aspirin 81 mg p.o. daily, currently being held; ascorbic acid/ vitamin C 500 mg p.o. daily. PAST MEDICAL HISTORY: Hypertension, type 2 diabetes, GERD, atrial flutter, COPD , constipation, chronic low back pain, overactive bladder, degenerative disk disease, and spinal stenosis. PAST SURGICAL HISTORY: Significant for back surgery, most recently being on October 12, 2017; L4-5, L5-S1 fusion; left carotid endarterectomy; bilateral cataract extractions with lens replacement; tonsillectomy, adenoidectomy. FAMILY HISTORY: Grandparents have hypertension, CVA. Mother and grandparents had breast cancer. SOCIAL HISTORY: The patient is staying locally in [place] presently with her . She is from [place]. She is . She quit smoking in 2006. She denies any illicit drug use. She drinks 1 sip of alcoholic beverage weekly. LABORATORY DATA: White blood cell count 10.11, hemoglobin 11.2, hematocrit 34.1 , platelets 205. PT 13.8, INR 1.04. D-dimer 1.08. Sodium 142, potassium 4.5, BUN 13, creatinine 0.6, glucose 175. Troponin 0. IMAGING: CT of the thorax and chest was performed with no visible pulmonary embolus. There was a 3 mm right upper lobe nodule with some underlying emphysema. Coronary artery atherosclerosis. PHYSICAL EXAM: HEENT: Head is normocephalic and atraumatic. Pupils are equal , round, and reactive to light. EOMs intact. Full visual godfrey by confrontation. RESPIRATORY/CARDIAC: Deferred. ABDOMEN/RECTAL/GENITOURINARY: Deferred. NEUROLOGIC: Patient is awake and alert and oriented to name, place, person, time, and self. Memory is intact to immediate past and current events. Speech: No aphasia or dysphonia. Cranial nerves 2-12 are grossly intact. Motor: Patient has 5/5 strength in all muscle groups in the bilateral lower extremities to include iliopsoas, quadriceps, hamstrings, plantar flexion, dorsiflexion, EHL testing. Sensation is grossly intact to light touch throughout all dermatomal distributions in bilateral lower extremities. Negative straight leg raise. Negative KATIANA test. Reflexes: Knee jerk and ankle jerk are 2+ out of 4. Toes are downgoing bilaterally. Babinski is negative. ASSESSMENT AND PLAN: The patient is a 67-year-old female who is postop day 3 of an L4-L5, L5-S1 lumbar fusion with Dr. Crawford on October 12, 2017. The patient was discharged home where she was staying in a hotel locally and was unable to control her postoperative pain with oral medications last night. The patient presented to the emergency department and reportedly was hypoxic as well as some tachycardia. CT of the chest was performed which did rule out a pulmonary embolus. The patient was admitted to Medicine. I spoke to Joy Inman NP, and we are happy to take over as primary on this patient since she is our recent postoperative patient. We appreciate them following this patient for any concerns regarding the nodule in her lung. We will admit the patient and work on managing her postoperative pain so we can discharge her accordingly. She was arranged to have home PT and OT come to her hotel. We will have Case Management involved to evaluate the need for a possible SNF or rehab if needed. The patient was seen and examined by Dr. Crawford in the emergency department at 0730. /[id number]/MODL MTDD
[2017-10-15] MEDS: oxyCODONE IR 5 MG TAB PO PRN ×3 (14:12→22:40)
[2017-10-15] MEDS: METHOCARBAMOL 750 MG TAB PO SCH ×3 (14:13→22:24)
--- NOTE | 2017-10-15 16:13 | HOSPPROG ---
Hospitalist Progress Note Assessment/Plan: Patient is a 67-year-old female who was recently discharged yesterday after having surgery with Dr. Rick Crawford. She came to the emergency room with severe back pain. Today is my 1st encounter with the patient. Chart reviewed. Discussed her care with the neuro surgical team services and they will be the primary on her care. I reviewed her vital signs she is hypoxic. Suspect this likely secondary from atelectasis and being on pain medications. she is also tachycardic. * intractable back pain -she is status post a TLIF of L4-5 and L5-S1 with Dr. Crawford -suspect she may be having spasms * hypertension -bp stable * diabetes type 2 * COPD -she is requiring 2 L of oxygen -will order an IS -p.r.n. Albuterol -CTA shows no PE, but moderate centrilobular emphysema * constipation -bowel protocol * history of atrial flutter/tachycardia -resumed her beta ese w first dose now *3 mm right upper lobe nodule -reviewed this with the patient to get f/u with her hx of smoking *Plan: going to go to rehab / having ongoing significant back pain Subjective: Andie is tearful and worried about getting out of bed due to the pain. Objective: Vital Signs Temp Pulse Resp BP Pulse Ox 37.1 C 98 16 114/70 94 10/15/17 15:17 10/15/17 15:17 10/15/17 15:17 10/15/17 15:17 10/15/17 15:17 10/14/17 10/15/17 10/16/17 05:59 05:59 05:59 Intake Total 1999 Balance 1999 PT 13.8 SEC (12.0-15.0) 10/15/17 01:15 INR 1.04 (0.83-1.16) 10/15/17 01:15 - Physical Exam Constitutional: uncomfortable, No not in pain Eyes: PERRL Ears, Nose, Mouth, Throat: hearing normal Cardiovascular: regular rate and rhythym, tachycardia Respiratory: no respiratory distress Gastrointestinal: normoactive bowel sounds, soft, non-tender abdomen Skin: warm Musculoskeletal: generalized weakness Neurologic: AAOx3 Psychiatric: interacting appropriately, anxious ICD10 Worksheet Patient Problems: Problems Problem Status Onset Back pain Acute Hypoxia Acute Pulmonary nodule Acute Tachycardia Acute Fusion of lumbar spine Acute
[2017-10-15] MEDS ORDERED: METOPROLOL TARTRATE 25 MG TAB PO ONE (16:36)
[2017-10-15] MEDS ORDERED: TEARS/DEXTRAN 70/HYPROMELLOSE 15 ML OPHT.BTL EACHEYE PRN (17:37)
[2017-10-15] MEDS: METOPROLOL TARTRATE 25 MG TAB PO SCH (20:22)
[2017-10-15] MEDS: PRAVASTATIN SODIUM 20 MG TAB PO SCH (20:25)
[2017-10-15] MEDS: TRIAMCINOLONE 0.1% 15 GM CRTUBE TP SCH (22:42)
[2017-10-15] MEDS: LIDOCAINE 4%/MENTHOL 1% PATCH TD SCH (22:42)
[2017-10-16] MEDS: HYDROCODONE/APAP 5/325 TAB PO PRN ×4 (02:15→17:42)
[2017-10-16] MEDS: METHOCARBAMOL 750 MG TAB PO SCH (02:16)
[2017-10-16] MEDS: METHOCARBAMOL 500 MG TAB PO SCH ×5 (05:27→21:20)
[2017-10-16] MEDS: oxyCODONE IR 5 MG TAB PO PRN ×2 (05:31→21:22)
[2017-10-16] MEDS: PATCH REMOVAL 1 EA PATCH TD SCH (05:48)
--- NOTE | 2017-10-16 08:00 | NEUSURGPN ---
Assessment/Plan: Assessment: 67 yr old s/p L4-5, L5-S1 TLIF with Dr Crawford on 10/12/17 Plan: -patient was discharged to hotel, unable to control pain and presented to the ER for pain management. Pain is improved this am. -Neuro intact, patient having right hip pain likely related to surgical positioning -Tachycardic and hypoxic on arrival-PE workup negative -Neuro intact -NSGY is primary team -Need to work on placement to SNF -D/w Dr Crawford Subjective: Pt resting in bed, states pain is better this am. Willing to go to rehab/SNF Objective: AAOx3 NAD VSS MAEx4 Motor 5/5 BLE +LT - Physician Discussed Patient with : [facility] Physical Exam - Vitals, I&O, Labs I and O 10/15/17 10/16/17 10/17/17 05:59 05:59 05:59 Intake Total 2200 100 Output Total 775 200 Balance 1425 -100 Weight 63.78 kg Intake: Oral (ml) 200 100 IV Infused (ml) 2000 Output: Urine (ml) 775 200 Toilet 775 200 Other: Number of Voids Toilet 1 Vital Signs Temp Pulse Resp BP Pulse Ox 36.7 C 90 15 113/68 95 10/16/17 07:30 10/16/17 07:30 10/16/17 07:30 10/16/17 07:30 10/16/17 07:30 ICD10 Worksheet Patient Problems: Problems Problem Status Onset Back pain Acute Hypoxia Acute Pulmonary nodule Acute Tachycardia Acute Fusion of lumbar spine Acute
[2017-10-16] MEDS: METOPROLOL TARTRATE 25 MG TAB PO SCH ×2 (08:23→21:21)
[2017-10-16] MEDS: ASCORBIC ACID 500 MG TAB PO SCH (08:23)
[2017-10-16] MEDS: SENNOSIDES/DOCUSATE SODIUM TAB PO SCH ×2 (08:24→21:22)
[2017-10-16] MEDS: PANTOPRAZOLE SODIUM 40 MG TAB PO SCH (08:25)
[2017-10-16] MEDS: LISINOPRIL 5 MG TAB PO SCH (08:25)
--- NOTE | 2017-10-16 08:54 | HOSPPROG ---
Hospitalist Progress Note Assessment/Plan: Patient is a 67-year-old female who was recently discharged after having surgery with Dr. Rick Crawford. She came to the emergency room with severe back pain. Discussed her care with the neuro surgical team services and they will be the primary on her care. * intractable back pain -she is status post a TLIF of L4-5 and L5-S1 with Dr. Crawford -much improved, staff has worked w her and helped her log roll and to move safely * hypertension -bp stable * diabetes type 2 -hold Metformin for now, received dye for cTA * COPD -she is requiring 2 L of oxygen -will order an IS -p.r.n. Albuterol -CTA shows no PE, but moderate centrilobular emphysema * constipation -bowel protocol * history of atrial flutter/tachycardia -resumed her beta ese -sinus *3 mm right upper lobe nodule -reviewed this with the patient to get f/u with her hx of smoking *Plan: going to go to rehab soon Subjective: Andie is feeling much better today, pain is better managed today. Objective: Vital Signs Temp Pulse Resp BP Pulse Ox 36.7 C 92 15 113/68 95 10/16/17 07:30 10/16/17 08:23 10/16/17 07:30 10/16/17 08:25 10/16/17 07:30 10/15/17 10/16/17 10/17/17 05:59 05:59 05:59 Intake Total 2200 100 Output Total 775 400 Balance 1425 -300 PT 13.8 SEC (12.0-15.0) 10/15/17 01:15 INR 1.04 (0.83-1.16) 10/15/17 01:15 - Physical Exam Constitutional: no apparent distress, appears nourished, not in pain Eyes: PERRL Ears, Nose, Mouth, Throat: hearing normal Cardiovascular: no murmur, rub, or gallop Respiratory: no respiratory distress, reduced air movement Skin: warm Musculoskeletal: generalized weakness Neurologic: AAOx3 Psychiatric: interacting appropriately ICD10 Worksheet Patient Problems: Problems Problem Status Onset Back pain Acute Hypoxia Acute Pulmonary nodule Acute Tachycardia Acute Fusion of lumbar spine Acute
--- NOTE | 2017-10-16 10:05 | ASMTCMCOM ---
CM Note CM Note Notes: Patient is a readmit; she and her have been unable to manage pain after her TLIF on 10/12/17. They left [facility] 10/14 and went to a hotel; she presented to ED 10/15 with the intractable pain. SNF rehab seems like an appropriate discharge plan. Patient requested a referral to [facility] in [place]. I have sent this, and we will await their response. Her second choice is [facility]. Case Management will follow. Date Signed: 10/16/2017 10:05 AM Electronically Signed By:Fern Rodriguez RN
[2017-10-16] MEDS: VITAMIN B COMPLEX 1 EA CAP/TAB PO SCH (10:17)
[2017-10-16] MEDS: TRIAMCINOLONE 0.1% 15 GM CRTUBE TP SCH ×2 (10:18→21:23)
[2017-10-16] MEDS: fentaNYL 25 MCG PATCH TD SCH (10:35)
--- NOTE | 2017-10-16 12:31 | PDMN ---
Medical Necessity Medical necessity: Change to IP, as of 10/15/17, per [employer]; los >2 mn for ongoing eval/tx of hypoxia, tachycardia & severe intractable back pain (not being managed w/medication pt was given) s/p L4/5 & L5/S1 TLIF; pt unsafe to return home & is requiring max assist w/bed mobility & demonstrating poor safety mechanics w/shuffled gait; admit for further monitoring, respiratory supportive care, pain management, therapies & dc planning; hx HTN, diabetes, COPD; per progress notes & order 10/15/17
[2017-10-16] MEDS: LIDOCAINE 4%/MENTHOL 1% PATCH TD SCH (21:19)
[2017-10-16] MEDS: PRAVASTATIN SODIUM 20 MG TAB PO SCH (21:22)
[2017-10-17] MEDS: METHOCARBAMOL 500 MG TAB PO SCH ×6 (01:50→21:36)
[2017-10-17] MEDS: oxyCODONE IR 5 MG TAB PO PRN ×6 (01:51→21:45)
[2017-10-17] MEDS: LISINOPRIL 5 MG TAB PO SCH (09:12)
[2017-10-17] MEDS: VITAMIN B COMPLEX 1 EA CAP/TAB PO SCH (09:12)
[2017-10-17] MEDS: PANTOPRAZOLE SODIUM 40 MG TAB PO SCH (09:12)
[2017-10-17] MEDS: ASCORBIC ACID 500 MG TAB PO SCH (09:14)
[2017-10-17] MEDS: METOPROLOL TARTRATE 25 MG TAB PO SCH ×2 (09:14→21:38)
[2017-10-17] MEDS: SENNOSIDES/DOCUSATE SODIUM TAB PO SCH ×2 (09:43→21:36)
[2017-10-17] MEDS: TRIAMCINOLONE 0.1% 15 GM CRTUBE TP SCH ×2 (12:40→21:35)
[2017-10-17] MEDS: PATCH REMOVAL 1 EA PATCH TD SCH (12:41)
--- NOTE | 2017-10-17 13:00 | NEUSURGPN ---
Assessment/Plan: Assessment/Plan: Assessment: 67 yr old s/p L4-5, L5-S1 TLIF with Dr Crawford on 10/12/17 Plan: -patient was discharged to hotel, unable to control pain and presented to the ER for pain management. Pain is improved this am but still has a lot of pain with sitting in non-reclining chair. Also has a "knot" in her right hip, not nerve pain, will try heat for this -Neuro intact, patient having right hip pain likely related to surgical positioning- will try heat for this -Tachycardic and hypoxic on arrival-PE workup negative -Neuro intact -NSGY is primary team -Need to work on placement to SNF- [facility] tomorrow or Thursday -D/w Dr Crawford Subjective: Pt resting in bed, states pain is better this am but still continues to have right hip pain that she states feels like a "knot". Uncomfortable to sit in chair and would like to try recliner if possible. Willing to go to rehab/SNF. Objective: AAOx3 NAD VSS MAEx4 Motor 5/5 BLE +LT - Physician Discussed Patient with : [facility] Physical Exam - Vitals, I&O, Labs I and O 10/16/17 10/17/17 10/18/17 05:59 05:59 05:59 Intake Total 2200 700 200 Output Total 775 400 Balance 1425 300 200 Weight 63.78 kg Intake: Oral (ml) 200 700 200 IV Infused (ml) 2000 Output: Urine (ml) 775 400 Toilet 775 400 Other: Intake Quantity Yes Sufficient Number of Voids Toilet 1 1 Number of Stools Toilet 3 Vital Signs Temp Pulse Resp BP Pulse Ox 37.6 C 97 18 113/71 93 10/17/17 07:20 10/17/17 07:20 10/17/17 07:20 10/17/17 07:20 10/17/17 07:20 ICD10 Worksheet Patient Problems: Problems Problem Status Onset Back pain Acute Hypoxia Acute Pulmonary nodule Acute Tachycardia Acute Fusion of lumbar spine Acute
--- NOTE | 2017-10-17 14:43 | HOSPPROG ---
Hospitalist Progress Note Assessment/Plan: Patient is a 67-year-old female who was recently discharged after having surgery with Dr. Rick Crawford. She came to the emergency room with severe back pain. Discussed her care with the neuro surgical team services and they will be the primary on her care. * intractable back pain -she is status post a TLIF of L4-5 and L5-S1 with Dr. Crawford 10/12 -she continues to have severe pain -we reviewed pain regimen that includes Fentanyl, Robaxin, Oxy, and [place] -will schedule Tylenol * hip pain -she would like to try Gatorade/ she can order this from ED * hypertension -bp stable * diabetes type 2 -hold Metformin for now, received dye for cTA -resume tomorrow * COPD -she is requiring 1 L of oxygen -encouraged IS -p.r.n. Albuterol -CTA shows no PE, but moderate centrilobular emphysema * constipation -bowel protocol * history of atrial flutter/tachycardia -resumed her beta ese -sinus -not on AC after recent surgery *3 mm right upper lobe nodule -reviewed this with the patient to get f/u with her hx of smoking/ CT for 1 year *Plan: going to go to rehab soon/to go to [facility] Subjective: Reports pain and hip pain. No dyspnea Objective: Vital Signs Temp Pulse Resp BP Pulse Ox 99.7 F 97 18 113/71 93 10/17/17 07:20 10/17/17 07:20 10/17/17 07:20 10/17/17 07:20 10/17/17 07:20 10/16/17 10/17/17 10/18/17 05:59 05:59 05:59 Intake Total 2200 700 600 Output Total 775 400 Balance 1425 300 600 PT 13.8 SEC (12.0-15.0) 10/15/17 01:15 INR 1.04 (0.83-1.16) 10/15/17 01:15 - Physical Exam Constitutional: no apparent distress, appears nourished Eyes: PERRL Ears, Nose, Mouth, Throat: moist mucous membranes Cardiovascular: regular rate and rhythym, no murmur, rub, or gallop Respiratory: no respiratory distress, reduced air movement Genitourinary: no bladder fullness Skin: warm, normal color Neurologic: AAOx3 ICD10 Worksheet Patient Problems: Problems Problem Status Onset Back pain Acute Hypoxia Acute Pulmonary nodule Acute Tachycardia Acute Fusion of lumbar spine Acute
[2017-10-17] MEDS: ACETAMINOPHEN 325 MG TAB PO SCH ×2 (18:28→21:36)
[2017-10-17] MEDS: PRAVASTATIN SODIUM 20 MG TAB PO SCH (21:41)
[2017-10-17] MEDS: LIDOCAINE 4%/MENTHOL 1% PATCH TD SCH (21:45)
[2017-10-18] MEDS: METHOCARBAMOL 500 MG TAB PO SCH ×4 (01:04→14:31)
[2017-10-18] MEDS: ACETAMINOPHEN 325 MG TAB PO SCH ×2 (01:04→06:04)
[2017-10-18] MEDS: oxyCODONE IR 5 MG TAB PO PRN ×3 (06:07→16:57)
--- NOTE | 2017-10-18 08:10 | NEUSURGPN ---
Assessment/Plan: Assessment/Plan: Assessment: 67 yr old s/p L4-5, L5-S1 TLIF with Dr Crawford on 10/12/17 Plan: -patient was discharged to hotel, unable to control pain and presented to the ER for pain management. -Pain is improved this am in right hip with heating pad -Neuro intact, patient having right hip pain likely related to surgical positioning- continue heating pad as this is helping for this -Tachycardic and hypoxic on arrival-PE workup negative -Neuro intact -NSGY is primary team -Need to work on placement to SNF- [facility] today or Thursday -D/w Dr Crawford Subjective: Pt resting in bed, states pain is better this am and heat is helping right hip pain. Was also having cramps at night but given gatorade and this has helped decrease those. Willing to go to rehab/SNF. Objective: AAOx3 NAD VSS MAEx4 Motor 5/5 BLE +LT - Physician Discussed Patient with : [facility] Physical Exam - Vitals, I&O, Labs I and O 10/17/17 10/18/17 10/19/17 05:59 05:59 05:59 Intake Total 700 600 Output Total 400 Balance 300 600 Weight 63.503 kg Intake: Oral (ml) 700 600 Output: Urine (ml) 400 Toilet 400 Other: Intake Quantity Yes Yes Sufficient Number of Voids Toilet 1 2 Number of Stools Toilet 3 Vital Signs Temp Pulse Resp BP Pulse Ox 36.9 C 86 16 122/70 H 94 10/18/17 07:54 10/18/17 07:54 10/18/17 07:54 10/18/17 07:54 10/18/17 07:54 ICD10 Worksheet Patient Problems: Problems Problem Status Onset Back pain Acute Hypoxia Acute Pulmonary nodule Acute Tachycardia Acute Fusion of lumbar spine Acute
[2017-10-18] MEDS: VITAMIN B COMPLEX 1 EA CAP/TAB PO SCH (08:58)
[2017-10-18] MEDS: PANTOPRAZOLE SODIUM 40 MG TAB PO SCH (08:58)
[2017-10-18] MEDS: ASCORBIC ACID 500 MG TAB PO SCH (08:58)
[2017-10-18] MEDS: LISINOPRIL 5 MG TAB PO SCH (08:59)
[2017-10-18] MEDS: METOPROLOL TARTRATE 25 MG TAB PO SCH (08:59)
[2017-10-18] MEDS ORDERED: metFORMIN HCL 500 MG TAB PO SCH (10:15)
--- NOTE | 2017-10-18 10:17 | HOSPPROG ---
Hospitalist Progress Note Assessment/Plan: Patient is a 67-year-old female who was recently discharged after having surgery with Dr. Rick Crawford. She came to the emergency room with severe back pain. Discussed her care with the neuro surgical team services and they will be the primary on her care. * intractable back pain -she is status post a TLIF of L4-5 and L5-S1 with Dr. Crawford 10/12 -she continues to have severe pain -we reviewed pain regimen that includes Fentanyl, Robaxin, Oxy, and [place] -will schedule Tylenol * hip pain -she would like to try Gatorade/ she can order this from ED * hypertension -bp stable * diabetes type 2 -held Metformin in setting of recent CTA -resume today * COPD -she is requiring 1 L of oxygen -encouraged IS -p.r.n. Albuterol -CTA shows no PE, but moderate centrilobular emphysema * constipation -bowel protocol * history of atrial flutter/tachycardia -resumed her beta ese -sinus -not on AC after recent surgery *3 mm right upper lobe nodule -reviewed this with the patient to get f/u with her hx of smoking/ CT for 1 year *Plan: going to go to rehab soon/to go to [facility]/ OK from medical perspective to discharge Subjective: Has been up walking. She reports post-surgical pain is much less than what preceded surgery. No palps/ dyspnea. Objective: Vital Signs Temp Pulse Resp BP Pulse Ox 98.5 F 120 H 16 122/70 H 94 10/18/17 07:54 10/18/17 08:59 10/18/17 07:54 10/18/17 07:54 10/18/17 07:54 10/17/1718 10/19/17 05:59 05:59 05:59 Intake Total 700 600 Output Total 400 Balance 300 600 PT 13.8 SEC (12.0-15.0) 10/15/17 01:15 INR 1.04 (0.83-1.16) 10/15/17 01:15 - Physical Exam Constitutional: no apparent distress, appears nourished Eyes: PERRL, anicteric sclera Ears, Nose, Mouth, Throat: moist mucous membranes, hearing normal Cardiovascular: regular rate and rhythym, no murmur, rub, or gallop Respiratory: no respiratory distress, no rales or rhonchi Gastrointestinal: normoactive bowel sounds, soft, non-tender abdomen Skin: warm, normal color Neurologic: AAOx3 Psychiatric: interacting appropriately, not anxious ICD10 Worksheet Patient Problems: Problems Problem Status Onset Fusion of lumbar spine Acute Back pain Acute Tachycardia Acute Hypoxia Acute Pulmonary nodule Acute
[2017-10-18] MEDS: fentaNYL 25 MCG PATCH TD SCH (10:45)
[2017-10-18] MEDS: TRIAMCINOLONE 0.1% 15 GM CRTUBE TP SCH (10:48)
[2017-10-18] MEDS: PATCH REMOVAL 1 EA PATCH TD SCH (10:48)
[2017-10-18] MEDS: SENNOSIDES/DOCUSATE SODIUM TAB PO SCH (11:34)
[2017-10-18] MEDS ORDERED: ACETAMINOPHEN 325 MG TAB PO SCH (12:00)
--- NOTE | 2017-10-18 14:12 | PDIAF ---
- Diagnosis Diagnosis: Lumbar Stenosis with readiculopathy Code Status: Full Code - Medication Management Discharge Medications: Medications to Continue on Transfer Ascorbic Acid [Vitamin C 500 mg (*)] 500 mg PO DAILY 09/18/17 [Last Taken Unknown] Lidocaine [Lidoderm] 0.5 - 1 each TP DAILY 09/18/17 [Last Taken Unknown] Lisinopril [Zestril 5 mg (*)] 5 mg PO DAILY 09/18/17 [Last Taken 10/14/17] Metoprolol Tartrate [Lopressor 25 mg (*)] 12.5 mg PO BID 09/18/17 [Last Taken ] Multivitamins [Multivitamin (*)] 1 each PO BID 09/18/17 [Last Taken Unknown] Omeprazole 20 mg PO DAILY 09/18/17 [Last Taken 10/14/17] Propylene Glycol [Systane Balance] 1 drop EACHEYE DAILY PRN 09/18/17 [Last Taken Unknown] Simvastatin [Zocor] 10 mg PO HS 09/18/17 [Last Taken 10/14/17] Vitamin B Complex [Vitamin B Complex (OTC)] 1 each PO DAILY 09/18/17 [Last Taken Unknown] metFORMIN HCL [Glucophage 500 mg (*)] 500 mg PO DAILY 09/18/17 [Last Taken 10/14] Triamcinolone 0.1% [Triamcinolone 0.1% Cream (*)] 1 rose TP BID #0 09/25/17 [ Last Taken Unknown] Methocarbamol [Robaxin 750 mg (*)] 750 mg PO Q4 PRN #90 tab 10/14/17 [Last Taken 10/14/17] Acetaminophen [Tylenol 325mg (*)] 650 mg PO Q6HRS tab 10/18/17 [Last Taken Unknown] Albuterol [Proventil Neb] 3 ml IH Q2HRS PRN deyvial 10/18/17 [Last Taken Unknown] Metoprolol Tartrate [Lopressor 25 mg (*)] 12.5 mg PO BID tab 10/18/17 [Last Taken Unknown] Ondansetron HCl Pf [Zofran 4 mg Inj (*)] 4 mg IVP Q4HRS PRN vial 10/18/17 [ Last Taken Unknown] Polyethylene Glycol 3350 [Miralax 17 gm (*)] 17 gm PO DAILY PRN pkt 10/18/17 [ Last Taken Unknown] Sennosides/Docusate Sodium [Senokot-S] 1 - 2 tab PO BID tab 10/18/17 [Last Taken Unknown] fentaNYL [Duragesic 25 MCG Patch (*)] 25 mcg TD Q48H patch 10/18/17 [Last Taken Unknown] oxyCODONE IR [Oxycodone Ir (*)] 5 - 10 mg PO Q3H PRN tab 10/18/17 [Last Taken Unknown] Discharge Medications: Refer to the Discharge Home Medication list for PRN reason. - Orders Services needed: Registered Nurse, Physical Therapy, Occupational Therapy Diet Recommendation: no restrictions on diet Diet Texture: Regular Texture Diet Additional Instructions: Wear your brace when up and out of bed No NSAIDs for 6 months May shower, no scrubbing incision may let soapy water jones over incision, pat dry and keep clean and dry Leave steri strips in place No bending at the waist, extreme twisting, lifting more than 5-10 pounds Follow up with Dr. Crawford in 2-3 weeks Call [facility] with any questions or concerns - Follow Up Care Current Providers and Referrals: BALA YAN [Other] - As per Instructions
--- NOTE | 2017-10-18 14:27 | ASMTLACE ---
LACE Length of stay for Answers: 3 days current admission Comorbidities - select Answers: Chronic pulmonary disease all that apply Diabetes (uncontrolled or controlled) Opioid dependence / Chronic pain # of Emergency department Answers: 1-2 visits in the last 6 months Score: 11 Date Signed: 10/18/2017 02:26 PM Electronically Signed By:Mindy Gomez RN
--- NOTE | 2017-10-18 14:36 | ASMTCMCOM ---
CM Note CM Note Notes: Chart reviewed. Medically cleared for discharge to SNF. Final orders, therapy notes via allscripts.. CM available should other needs arise. Transport via wheelchair van at 5pm. Plan: To [facility] Date Signed: 10/18/2017 02:35 PM Electronically Signed By:Mindy Gomez RN
[2017-10-18 16:07] VITALS: BP 101/61
== END 2017-10-18 17:15 | DRG 948 ==
LOC: OBSVTOIN 10-15 02:54 → F3N 10-15 12:49
PROVIDERS: ADMIT Neurological Surgery; ATTEND Neurological Surgery
DX: G89.18 Other acute postprocedural pain (principal); I48.92 Unspecified atrial flutter; I10 Essential (primary) hypertension; J44.9 Chronic obstructive pulmonary disease, unspecified; E11.9 Type 2 diabetes mellitus without complications; K21.9 Gastro-esophageal reflux disease without esophagitis; D63.8 Anemia in other chronic diseases classified elsewhere; R91.1 Solitary pulmonary nodule; K59.00 Constipation, unspecified; Z98.1 Arthrodesis status; Z79.84 Long term (current) use of oral hypoglycemic drugs; Z79.82 Long term (current) use of aspirin
CPT/HCPCS: 84484-PO; 96374; 97116-GP; 97161-GP; 97165-GO; 97530-GP; 97535-GO; G8978-GP-CK; G8979-GP-CI; G8987-GO-CJ; G8988-GO-CI; J1170; J2405; Q9967